=== PATIENT | male | born 1990 | race Caucasian/White ===

== ENCOUNTER 2022-08-10 08:43 | Outpatient (CLI) | payer BC, SELFPAY ==
[2022-08-10 13:48] LABS: Chloride* 104 mmol/L (96-114); Potassium* 4.6 mmol/L (3.6-5.1); Sodium* 139 mmol/L (135-149)
[2022-08-10 13:51] LABS: Blood Urea Nitrogen* 12 mg/dL (5-24); Carbon Dioxide* 28 mmol/L (20-32); Cholesterol* 163 mg/dL (90-199); Estimated Glomerular Filt Rate 103 ml/min; Glucose* 100 mg/dL (60-115); Triglycerides* 126 mg/dL (40-149)
[2022-08-10 13:52] LABS: Calcium* 9.1 mg/dL (8.4-10.6); HDL Cholesterol* 33 mg/dL (>=40); LDL Cholesterol Calculated 105 mg/dL (<100)
== END 2022-08-10 08:44 | disposition home or self-care (01) ==
PROVIDERS: PCP Family Medicine; Visit Provider Family Medicine
DX: Z00.00 Encounter for general adult medical examination without abnormal findings (principal); E78.5 Hyperlipidemia, unspecified; Z13.1 Encounter for screening for diabetes mellitus
CPT/HCPCS: 80048; 80061

== ENCOUNTER 2025-01-02 09:40 | Outpatient (CLI) | payer BC, SELFPAY | END 2025-01-02 09:41 | disposition home or self-care (01) | LOC: NFLDREF 01-08 01:46 | PROVIDERS: PCP Family Medicine; Referring Provider Family Medicine; Visit Provider Family Medicine | DX: E78.5 Hyperlipidemia, unspecified (principal) | CPT/HCPCS: 80053; 80061 ==